=== PATIENT | male | born 1950 | race Hispanic/Latino ===

== ENCOUNTER 2018-12-19 11:22 | Day surgery (SDC) | payer BC, MEDICARE, OTHER ==
[2018-12-19] MEDS ORDERED: LIDOCAINE MPF (2%) 20 MG/1 ML VIAL 5 ML ONE (12:30)
[2018-12-19] MEDS ORDERED: SODIUM CHLORIDE 0.9% 1000 ML 1,000 ML ONE (12:31)
[2018-12-19] MEDS ORDERED: PROPOFOL 200 MG/20 ML VIAL IV ONE ×3 (14:00→14:40)
[2018-12-19] MEDS ORDERED: SODIUM CHLORIDE 0.9% 1000 ML 1,000 ML IV SCH (14:00)
--- NOTE | 2018-12-19 14:08 | Anesthesia Consultation ---
Anesthesia Consult and Med Hx Date of service: 12/19/18 - Airway Anesthetic Teeth Evaluation: Good ROM Head & Neck: Adequate Mental/Hyoid Distance: Adequate Mallampati Class: Class I Intubation Access Assessment: Good - Pre-Operative Health Status ASA Pre-Surgery Classification: ASA3 Proposed Anesthetic Plan: MAC - Pulmonary Hx Smoking: Yes (past smoker) Hx Asthma: No Hx Respiratory Symptoms: Yes (mild emphysema per pt.) SOB: No COPD: No Home Oxygen Therapy: No Hx Pneumonia: No Hx Sleep Apnea: Yes - Cardiovascular System Hx Hypertension: No Hx Coronary Artery Disease: No Hx Heart Attack/AMI: No Hx Angina: No Hx Percutaneous Transluminal Coronary Angioplasty (PTCA): No Hx Cardia Arrhythmia: No Hx Pacemaker: No Hx Internal Defibrillator: No Hx Valvular Heart Disease: No Hx Heart Murmur: No Hx Peripheral Vascular Disease: No - Central Nervous System Hx Neuromuscular Disorder: No Hx Seizures: No CVA: No Hx Back Pain: No Hx Psychiatric Problems: No - Gastrointestinal Hx Ulcer: No Hx Gastroesophageal Reflux Disease: Yes - Endocrine Hx Renal Disease: No Hx End Stage Renal Disease: No Hx Cirrhosis: No Hx Liver Disease: No Hx Insulin Dependent Diabetes: No Hx Non-Insulin Dependent Diabetes: No Hx Thyroid Disease: No Hx Hypothyroidism: No Hx Hyperthyroidism: No - Hematic Hx Anemia: No Hx Sickle Cell Disease: No - Other Systems Hx Alcohol Use: No Hx Substance Use: No Hx Cancer: Yes (prostate ca) Hx Obesity: Yes
--- NOTE | 2018-12-19 14:09 | Anesthesia Day of Surgery ---
Anesthesia Day of Surgery - Day of Surgery Patient Examined: Yes Patient H&P Reviewed: Yes Patient is NPO: Yes Beta Blockers: No
--- NOTE | 2018-12-19 14:50 | Procedure Note ---
Date of procedure: 12/19/18 Pre-op diagnosis: GERD/Colon Poyp Screening Post-op diagnosis: other (Mild to Moderate Erosive Esophagitis/Gastritis/Gastric Erosion/Gastritis/Gastric Erosion) Procedure: EGD with Biopsy/Colonoscopy withCold Snare Polypectomy and Cold Biopsy Anesthesia: [facility] Surgeon: LAMBERT FLORES Estimated blood loss: minimal Pathology: list Specimen disposition: to lab Condition: stable Disposition: same day (Treat with PPI and encourage fiber intake. Avoid aspirin and NSAID for 4 days; otherwise resume home medication and follow up in 1 to 2 weeks ([phone]).)
--- NOTE | 2018-12-19 14:56 | Operative Report ---
PROCEDURE: EGD with biopsy. INDICATIONS: A 68-year-old -Italian gentleman who has been having GERD symptoms. EGD was done to assess for the problem. DESCRIPTION OF PROCEDURE: The procedure was done after getting informed consent with MAC anesthesia. Instrument was passed through the hypopharynx into the esophagus, which showed mild to moderate erosive esophagitis. Biopsy was done from the distal esophagus. Stomach showed gastric erosion and gastritis. The pylorus was patent. Duodenum in the first and the second portion appeared normal. Biopsy was done from the gastric antrum, gastric body and angular incisura to rule out for H. pylori. There was no peptic ulcer disease noted within the gastric or the duodenal lumen. There was minimal bleeding from the biopsy sites. No complications associated with the procedure. ASSESSMENT: Gastroesophageal reflux disease symptoms, mild to moderate distal erosive esophagitis, gastritis. No peptic ulcer disease noted. PLAN: To treat the patient with PPI, have the patient avoid aspirin and aspirin-related products for the next few days and to do a colonoscopy for further assessment. The patient's procedure was done in the GI lab with assistance of the GI lab team, which included RN, Luann Rodriguez and with assistance of Anesthesia. JOB# [id number] SEBASTIEN/LEIUD
--- NOTE | 2018-12-19 14:58 | Operative Report ---
PROCEDURE: Colonoscopy. INDICATIONS: This is a 68-year-old -[place] gentleman who had a colonoscopy done as part of colon polyp screening. DESCRIPTION OF PROCEDURE: Procedure was done after getting informed consent with MAC anesthesia. Initial rectal exam was unremarkable. Instrument was passed through the rectum onto the cecum, which was identified with ileocecal valve and appendiceal orifice. Visualization was fair. Cecum, ascending colon, transverse colon showed normal mucosa. There were a few diverticula noted in the left colon and in the descending colon, there was an 8 to 9 mm polyp that was removed by cold biopsy and the rectum showed some minor internal hemorrhoid on the retroverted view. There was minimal bleeding from the biopsy sites. No complications associated with the procedure. ASSESSMENT: Colon polyp screening, solitary descending colon polyp removed by cold biopsy. [id number] left colon diverticular disease, minor internal hemorrhoid. The patient will be asked to avoid aspirin and aspirin-related products for the next few days. Encouraged to take fiber supplements, treat with PPI and follow up in the office in 1-2 weeks' time. The procedure was done in the GI lab with assistance of the GI lab team, which included Nancy WHITMAN and Luann garrett with the assistance of Anesthesia. JOB# [id number] SEBASTIEN/ELIUD
[2018-12-19 15:18] VITALS: BP 131/81
--- NOTE | 2018-12-19 18:00 | Post Anesthesia Evaluation ---
- Post Anesthesia Evaluation Patient Participated: Yes Airway Patent: Yes Stable Respiratory Function: Yes Nausea/Vomiting: No Temp > 96.8F: Yes Pain Manageable: Yes Adequeate Hydration: Yes Anesthesia Complications: No Block Receding Appropriately: Not Applicable Patient on Ventilator: No
== END 2018-12-19 15:28 | disposition home or self-care (01) ==
LOC: GIO 11:22
DX: Z12.11 Encounter for screening for malignant neoplasm of colon (principal); K29.70 Gastritis, unspecified, without bleeding; K63.5 Polyp of colon; K57.30 Diverticulosis of large intestine without perforation or abscess without bleeding; K64.8 Other hemorrhoids; K21.0 Gastro-esophageal reflux disease with esophagitis; G47.30 Sleep apnea, unspecified; E66.9 Obesity, unspecified; H40.9 Unspecified glaucoma; Z79.899 Other long term (current) drug therapy; Z87.891 Personal history of nicotine dependence; Z98.49 Cataract extraction status, unspecified eye; Z68.35 Body mass index [BMI] 35.0-35.9, adult; Z85.49 Personal history of malignant neoplasm of other male genital organs; Z98.890 Other specified postprocedural states
CPT/HCPCS: 43239; 45380; 88305; 88342; J2704; J7030